=== PATIENT | female | born 1995 | race Caucasian/White ===

== ENCOUNTER 2017-03-03 18:16 | Emergency (ER) | payer SELFPAY ==
[2017-03-03 18:16] VITALS: BMI 19.7
[2017-03-03 18:42] VITALS: TEMP 98.1
[2017-03-03] MEDS ORDERED: Sodium Chloride 0.9% 1,000 ML IV STA (19:18)
--- NOTE | 2017-03-03 19:27 | ED PDOC ---
Arrival/HPI <Kuldeep Brown - Last Filed: 03/03/17 23:46> - General Historian: Patient <Angel Kiran - Last Filed: 03/04/17 00:15> - General Chief Complaint: Abdominal Pain Time Seen by Provider: 03/03/17 18:51 - History of Present Illness Narrative History of Present Illness (Text): 03/03/17 19:26 21 y/o female, no pmh, nkda, c/o lt. abdominal swelling and lump x 1 week. Pt. stated that she strains alot, been having pain and feels there is nodule, no nausea or vomiting, no diarrhea, no constipation, last bowel movement was today , no urinary symptoms, no other medical or psychological complaints. (Angel Kiran) Past Medical History - Provider Review Nursing Documentation Reviewed: Yes - Past History Past History: No Previous - Infectious Disease Hx of Infectious Diseases: None - Cardiac Hx Cardiac Disorders: No - Pulmonary Hx Asthma: Yes - Neurological Hx Neurological Disorder: No - HEENT Hx HEENT Disorder: No - Renal Hx Renal Disorder: No - Endocrine/Metabolic Hx Endocrine Disorders: No - Hematological/Oncological Hx Blood Disorders: No - Integumentary Hx Dermatological Disorder: No - Musculoskeletal/Rheumatological Hx Musculoskeletal Disorders: No - Gastrointestinal Hx Gastrointestinal Disorders: No - Genitourinary/Gynecological Hx Genitourinary Disorders: No - Psychiatric Hx Psychophysiologic Disorder: No Hx Substance Use: No - Anesthesia Hx Anesthesia: No <Angel Kiran - Last Filed: 03/04/17 00:15> Family/Social History - Physician Review Nursing Documentation Reviewed: Yes Family/Social History: Unknown Family HX Smoking Status: Never Smoked Hx Alcohol Use: Yes Frequency of alcohol use: Socially Hx Substance Use: No <Angel Kiran - Last Filed: 03/04/17 00:15> Allergies/Home Meds <Kuldeep Brown - Last Filed: 03/03/17 23:46> <Angel Kiran - Last Filed: 03/04/17 00:15> Allergies/Adverse Reactions: Allergies Daily Allergy (Uncoded 03/03/17 18:43) ANAPHYLAXIS Review of Systems - Review of Systems Constitutional: absent: Fatigue, Fevers Eyes: absent: Vision Changes ENT: absent: Hearing Changes Respiratory: absent: SOB, Cough Cardiovascular: absent: Chest Pain Gastrointestinal: Abdominal Pain. absent: Nausea, Vomiting Neurological: absent: Headache, Dizziness, Focal Weakness, Gait Changes, Speech Changes, Facial Droop, Disequilibrium, Seizure <Angel Kiran - Last Filed: 03/04/17 00:15> Physical Exam Vital Signs Reviewed: Yes Temperature: Afebrile Blood Pressure: Normal Pulse: Regular Respiratory Rate: Normal Appearance: Positive for: Well-Appearing, Non-Toxic, Comfortable Pain Distress: Mild Mental Status: Positive for: Alert and Oriented X 3 - Systems Exam Head: Present: Atraumatic, Normocephalic Pupils: Present: PERRL Extroacular Muscles: Present: EOMI Conjunctiva: Present: Normal Mouth: Present: Moist Mucous Membranes Neck: Present: Normal Range of Motion Respiratory/Chest: Present: Clear to Auscultation, Good Air Exchange. No: Respiratory Distress, Accessory Muscle Use Cardiovascular: Present: Regular Rate and Rhythm, Normal S1, S2. No: Murmurs Abdomen: Present: Normal Bowel Sounds, Other (palpable bulging approx. 3cm diameter appear to be lipoma but resolved when supine.). No: Tenderness, Distention, Peritoneal Signs, Rebound, Guarding Back: Present: Normal Inspection Upper Extremity: Present: Normal Inspection. No: Cyanosis, Edema Lower Extremity: Present: Normal Inspection. No: Edema Neurological: Present: GCS=15, CN II-XII Intact, Speech Normal Skin: Present: Warm, Dry, Normal Color. No: Rashes Psychiatric: Present: Alert, Oriented x 3, Normal Insight, Normal Concentration <Angel Kiran - Last Filed: 03/04/17 00:15> Vital Signs Temp Pulse Resp BP Pulse Ox 03/03/17 22:30 72 17 118/62 98 03/03/17 18:37 98.1 F 65 18 103/69 98 Medical Decision Making <Kuldeep Brown - Last Filed: 03/03/17 23:46> - Lab Interpretations I have reviewed the lab results: Yes Interpretation: Abnormal lab values (K+ 3.4) <Angel Kiran - Last Filed: 03/04/17 00:15> ED Course and Treatment: 03/03/17 19:24 -labs -CT abdomen and pelvis -IVF/toradol -Observe and reassess 03/04/17 00:11 -Labs are non-significant except K+ 3.4 which I ordered potassium chloride 20meq po. -UA show no UTI. -CT abdomen show possible cystitis vs. lt. ovarian cyst. -I discussed all labs and radiology results with the patient, advised outpatient MRI of the abdomen with the pmd. -Pt. has no pain or discomfort now. -Discharge home with ibuprofen, eat more banana to increase your potassium, avoid strenuous exercise or activity, avoid heavy lifting, follow up with your own pmd for outpatient MRI of the abdomen/pelvic for follow up, return to the ER for any new or worsening signs or symptoms. (Angel Kiran) - Lab Interpretations Lab Results: 03/03/17 20:20 03/03/17 20:20 Lab Results 03/03/17 22:10: Urine Color Yellow, Urine Appearance Clear, Urine pH 7.5, Ur Specific [place] 1.015, Urine Protein Negative, Urine Glucose (UA) Negative, Urine Ketones Negative, Urine Blood Negative, Urine Nitrate Negative, Urine Bilirubin Negative, Urine Urobilinogen 0.2, Ur Leukocyte Esterase Negative 03/03/17 20:20: WBC 5.0, RBC 4.30, Hgb 12.9, Hct 38.1, MCV 88.6, MCH 30.0, MCHC 33.9, RDW 13.0, Plt Count 176, MPV 10.6, Gran % 49.6 L, Lymph % (Auto) 36.2 H, [place] % (Auto) 6.1 H, Eos % (Auto) 7.9 H, Baso % (Auto) 0.2, Gran # 2.46, Lymph # 1.8, [place] # 0.3, Eos # 0.4, Baso # 0.01, Sodium 140, Potassium 3.4 L, Chloride 102, Carbon Dioxide 27, Anion Gap 14, BUN 10, Creatinine 0.5, Est GFR ( Amer) > 60, Est GFR (Non-Af Amer) > 60, Random Glucose 84, Calcium 9.4, Total Bilirubin 0.6, AST 30, ALT 30, Alkaline Phosphatase 57, Total Protein 8.0 , Albumin 4.3, Globulin 3.7, Albumin/Globulin Ratio 1.2, Lipase 55 - RAD Interpretation Radiology Orders: 03/03/17 19:18 ABD & PELVIS IV CONTRAST ONLY [CT] Stat - Medication Orders Current Medication Orders: Discontinued Medications Sodium Chloride (Sodium Chloride 0.9%) 1,000 mls @ 999 mls/hr IV .Q1H1M STA Stop: 03/03/17 20:18 Last Admin: 03/03/17 22:22 Dose: 999 MLS/HR eMAR Start Stop Document 03/03/17 22:22 RD (Rec: 03/03/17 22:22 RD [id number]) Intravenous Solution Start Date 03/03/17 Start Time 22:22 End Date 03/03/17 End time 23:22 Total Infusion Time 60 Iohexol (Omnipaque 350 100 Ml) Confirm Administered Dose 350 mg .ROUTE .STK-MED ONE Stop: 03/03/17 21:44 Ketorolac Tromethamine (Toradol) 30 mg IVP STAT STA Stop: 03/03/17 19:22 Last Admin: 03/03/17 22:22 Dose: 30 MG IVP Administration Document 03/03/17 22:22 RD (Rec: 03/03/17 22:22 RD [id number]) Charges for Administration # of IVP Administrations 1 - PA / ROUTE RETURNER / Resident Statement AWA has reviewed & agrees with the documentation as recorded. <Kuldeep Brown - Last Filed: 03/03/17 23:46> - PA / ROUTE RETURNER / Resident Statement AWA has reviewed & agrees with the documentation as recorded. <Angel Kiran - Last Filed: 03/04/17 00:15> Disposition/Present on Arrival <Kuldeep Brown - Last Filed: 03/03/17 23:46> - Present on Arrival Any Indicators Present on Arrival: No History of DVT/PE: No History of Uncontrolled Diabetes: No Urinary Catheter: No History of Decub. Ulcer: No History Surgical Site Infection Following: None - Disposition Have Diagnosis and Disposition been Completed?: Yes Disposition Time: 00:14 Patient Plan: Discharge <Angel Kiran - Last Filed: 03/04/17 00:15> - Disposition Diagnosis: Ovarian cyst, Abdominal wall lump Disposition: HOME/ ROUTINE Condition: IMPROVED Discharge Instructions (ExitCare): [place] (ED) Print Language: MALTESE Additional Instructions: Discharge home with ibuprofen, eat more banana to increase your potassium, avoid strenuous exercise or activity, avoid heavy lifting, follow up with your own pmd for outpatient MRI of the abdomen/pelvic for follow up, return to the ER for any new or worsening signs or symptoms. Prescriptions: Ibuprofen [Motrin Tab] 800 mg PO TID PRN #21 tab PRN Reason: Other Referrals: Geovanni Ramires, [Primary Care Provider] - Follow up with primary [facility] at [facility] [Outside] - Follow up with primary Forms: SCHOOL NOTE
[2017-03-03 20:29] LABS: ADD MANUAL DIFF? NO
[2017-03-03 20:32] LABS: BASO # 0.01 K/mm3 (0.0-2.0); BASO % 0.2 % (0.0-3.0); EOS # 0.4 (0.0-0.7); EOS % 7.9 % (1.5-5.0); GRAN # 2.46 (1.4-6.5); GRAN % 49.6 % (50.0-68.0); HEMATOCRIT 38.1 % (36.0-48.0); LYMPH # 1.8 (1.2-3.4); LYMPH % 36.2 % (22.0-35.0); MEAN CELL VOLUME 88.6 fL (80.0-105.0); MEAN CORPUSCULAR HGB CONC 33.9 g/dl (31.0-37.0); MEAN PLATELET VOLUME 10.6 fl (7.0-11.0); MONO # 0.3 (0.1-0.6); MONO % 6.1 % (1.0-6.0); PLATELET COUNT 176 10^3/uL (120.0-450.0)
[2017-03-03 20:44] LABS: ALB/GLOB RATIO 1.2 (1.1-1.8); ALKALINE PHOSPHATASE 57 U/L (38-133); ALT/SGPT 30 U/L (7-56); AST/SGOT 30 U/L (15-39); BILIRUBIN,TOTAL 0.6 mg/dL (0.2-1.3); BLOOD UREA NITROGEN 10 mg/dL (7-21); CALCIUM 9.4 mg/dL (8.4-10.5); CARBON DIOXIDE 27 mmol/L (21-33); CHLORIDE 102 mmol/L (98-107); GFR AFRICAN-AMERICAN > 60; GLUCOSE,RANDOM 84 mg/dL (70-110); LIPASE 55 U/L (23-300); POTASSIUM 3.4 mmol/L (3.6-5.0); SODIUM 140 mmol/L (132-148)
[2017-03-03] MEDS ORDERED: Iohexol 350 MG/100 ML VIAL ONE (21:43)
[2017-03-03 22:28] LABS: PH,URINE 7.5 (4.7-8.0); URINE BILIRUBIN NEGATIVE (NEGATIVE); URINE BLOOD NEGATIVE (NEGATIVE); URINE GLUCOSE (UA) NEGATIVE (NEGATIVE); URINE KETONE NEGATIVE (NEGATIVE); URINE LEUKOCYTE ESTERASE NEGATIVE Leu/uL (NEGATIVE); URINE PROTEIN NEGATIVE mg/dL (<30 mg/dL); URINE UROBILINOGEN 0.2 E.U./dL (<1 E.U./dL)
[2017-03-03 22:29] LABS: URINE APPEARANCE CLEAR (CLEAR); URINE COLOR YELLOW (YELLOW)
--- NOTE | 2017-03-04 00:05 | CT ---
EXAM: CT Abdomen and Pelvis With Intravenous Contrast CLINICAL HISTORY: 21 years old, female; Pain; Abdominal pain; Acute; Additional info: Lt. Sided abdominal mass? TECHNIQUE: Axial computed tomography images of the abdomen and pelvis with intravenous contrast. This CT exam was performed using one or more of the following dose reduction techniques: automated exposure control, adjustment of the mA and/or kV according to patient size, and/or use of iterative reconstruction technique. Coronal and sagittal reformatted images were created and reviewed. CONTRAST: 100 mL of omni 350 administered intravenously. COMPARISON: No relevant prior studies available. FINDINGS: Limitations: Motion artifact - mild. Lower thorax: No acute findings. ABDOMEN: Liver: Unremarkable. No mass. Gallbladder and bile ducts: No calcified stones. No ductal dilation. Pancreas: No ductal dilation. No mass. Spleen: No splenomegaly. Adrenals: No mass. Kidneys and ureters: Too small to characterize lesion within LEFT kidney. No hydronephrosis. Stomach and bowel: No definite mural thickening. No obstruction. Appendix: Normal caliber. No inflammation. PELVIS: Bladder: Borderline bladder wall thickening, 4-5 mm. Incomplete distention, limiting evaluation. Reproductive: 1.8 x 1.6 x 1.8 cm hypodense lesion within LEFT ovary. ABDOMEN and PELVIS: Intraperitoneal space: Trace free fluid within pelvis. No free air. Bones/joints: No acute fracture. Soft tissues: Unremarkable. Vasculature: Unremarkable. No abdominal aortic aneurysm. Lymph nodes: No pathologically enlarged lymph nodes. IMPRESSION: 1. Probable LEFT ovarian cyst. Consider ultrasound. 2. Mild cystitis vs underdistention. Correlate with urinalysis. 3. Incidental/non-acute findings are described above.
[2017-03-04] MEDS ORDERED: Potassium Chloride 20 mEq ER Tab PO STA (00:11)
[2017-03-04 00:54] VITALS: BP 115/61; PULSE 68; RESP 16; O2SAT 100
== END 2017-03-04 00:31 | disposition home or self-care (01) ==
LOC: ED 18:16
DX: R19.00 Intra-abdominal and pelvic swelling, mass and lump, unspecified site (principal); N83.202 Unspecified ovarian cyst, left side
CPT/HCPCS: 74177; 80053; 81003; 83690; 85025; 96361; 96374; 99283; J1885; J7040; Q9967

== ENCOUNTER 2017-08-17 14:09 | Emergency (ER) | payer OTHER ==
[2017-08-17 14:09] VITALS: BMI 19.7
[2017-08-17 14:19] VITALS: RESP 16; TEMP 98
[2017-08-17 15:14] LABS: URINE BILIRUBIN SMALL (NEGATIVE); URINE BLOOD SMALL (NEGATIVE); URINE GLUCOSE (UA) NEGATIVE (NEGATIVE); URINE KETONE 15 mg/dL (NEGATIVE); URINE LEUKOCYTE ESTERASE NEGATIVE Leu/uL (NEGATIVE); URINE PROTEIN TRACE mg/dL (<30 mg/dL)
[2017-08-17 15:15] LABS: URINE APPEARANCE SL CLOUDY (CLEAR); URINE COLOR YELLOW (YELLOW)
[2017-08-17 15:19] LABS: URINE BACTERIA FEW (NEG); URINE RBC 0 - 2 /hpf (0-2); URINE WBC 0 - 2 /hpf (0-6)
--- NOTE | 2017-08-17 15:29 | ED PDOC ---
Arrival/HPI - General Chief Complaint: Hip Pain Time Seen by Provider: 08/17/17 14:28 Historian: Patient - History of Present Illness Narrative History of Present Illness (Text): 08/17/17 21 yo female come in for evaluation of Left sided abdominal swelling, intermittent for past few months associated with intermittent pain. Pt sts, was seen here few months ago " and was told have hernia". Pt sts, pain and swelling intermittent, noted more with menstrual period and standing position. Otherwise , pt denies fever, chills, recent illness, denies N/V/D or change in appetite, food intolerance, denies back pain, UTI sx, vaginal irritation or discharges. Denies previous hx of abd. surgery. Ambulate to Ed for evaluation, not in any apparent distress. FYI: Records from previous visits to ED review, last one was on 03/03/17 when blood work, CT abd/pelvis performed and noted nos left ovarian cyst, no other acute abnormalities noted. Past Medical History - Provider Review Nursing Documentation Reviewed: Yes - Travel History Have you recently traveled outside [place] w/in the past 3 mons?: No - Past History Past History: No Previous - Infectious Disease Hx of Infectious Diseases: None - Cardiac Hx Cardiac Disorders: No - Pulmonary Hx Respiratory Disorders: No - Neurological Hx Neurological Disorder: No - HEENT Hx HEENT Disorder: No - Renal Hx Renal Disorder: No - Endocrine/Metabolic Hx Endocrine Disorders: No - Hematological/Oncological Hx Blood Disorders: No - Integumentary Hx Dermatological Disorder: No - Musculoskeletal/Rheumatological Hx Musculoskeletal Disorders: No - Gastrointestinal Hx Gastrointestinal Disorders: No - Genitourinary/Gynecological Hx Genitourinary Disorders: No - Psychiatric Hx Psychophysiologic Disorder: No Hx Substance Use: No - Anesthesia Hx Anesthesia: No Family/Social History - Physician Review Nursing Documentation Reviewed: Yes Family/Social History: No Known Family HX Smoking Status: Current Some Days Smoker Hx Alcohol Use: Yes Frequency of alcohol use: Socially Hx Substance Use: No Allergies/Home Meds Allergies/Adverse Reactions: Allergies dairy Allergy (Uncoded 08/17/17 14:20) ANAPHYLAXIS Home Medications: Home Meds Medication Instructions Recorded Confirmed No Known Home Med 08/17/17 08/17/17 Review of Systems - Review of Systems Constitutional: Normal Eyes: Normal ENT: Normal Respiratory: Normal Cardiovascular: Normal Gastrointestinal: Abdominal Pain. absent: Stool Changes, Constipation, Diarrhea , Nausea, Vomiting, Appetite Changes, Hematochezia, Hematemesis, Food Intolerance Genitourinary Female: Normal Musculoskeletal: Normal Skin: Normal Neurological: Normal Endocrine: Normal Hemo/Lymphatic: Normal Psychiatric: Normal Physical Exam Vital Signs Temp Pulse Resp BP Pulse Ox 08/17/17 14:13 98 F 77 16 100/64 97 Temperature: Afebrile Blood Pressure: Normal Pulse: Regular Respiratory Rate: Normal Appearance: Positive for: Well-Appearing, Non-Toxic, Comfortable Pain Distress: None Mental Status: Positive for: Alert and Oriented X 3 - Systems Exam Head: Present: Normocephalic Conjunctiva: Present: Normal Mouth: Present: Moist Mucous Membranes Neck: Present: Trachea Midline. No: MIDLINE TENDERNESS, JVD, Bruit Respiratory/Chest: Present: Clear to Auscultation, Good Air Exchange. No: Respiratory Distress, Accessory Muscle Use Cardiovascular: Present: Regular Rate and Rhythm, Normal S1, S2. No: Murmurs Abdomen: Present: Normal Bowel Sounds. No: Tenderness, Distention, Peritoneal Signs, Rebound, Guarding, Hernias Back: No: CVA Tenderness Upper Extremity: Present: Normal ROM. No: Deformity Lower Extremity: No: Edema, CALF TENDERNESS, Tenderness, Swelling, Deformity Neurological: Present: GCS=15, Speech Normal Skin: Present: Warm, Dry, Normal Color. No: Rashes Psychiatric: Present: Alert, Oriented x 3, Normal Insight, Normal Concentration Medical Decision Making ED Course and Treatment: 08/17/17 15:31 On re-eval, pt is afebrile, hemodynamicaly stable. non-toxic. Ambulatory in ED with stable gait. PulseOx 97% RA ENT: No acute findings Neck: Supple, (-) JVD, (-) carotid bruits Lungs: CTA B/L, BS equal B/L. Abd: benign, (-) guarding, (-) rebound, (-) localized tenderness or palpable hernia. back: (-) CVA tenderness. Preg (-) UA review. CT abd/pelvis review and compare to previous study, appears normal study. Pt has clinical findings c/w abdominal mass, nos. Pt advised and ref. to F/u with PMD, GI in 2-3 days for re-eval. return if any new changes. - Lab Interpretations Lab Results: Lab Results 08/17/17 14:55: Urine Color Yellow, Urine Appearance Sl cloudy, Urine pH 6.0, Ur Specific [place] 1.025, Urine Protein Trace H, Urine Glucose (UA) Negative, Urine Ketones 15 H, Urine Blood Small H, Urine Nitrate Negative, Urine Bilirubin Small H, Urine Urobilinogen 1.0 H, Ur Leukocyte Esterase Negative, Urine RBC 0 - 2, Urine WBC 0 - 2, Ur Epithelial Cells 6 - 8, Urine Bacteria Few - RAD Interpretation Radiology Orders: 08/17/17 14:42 ABD & PELVIS W/O PO OR IV CONT [CT] Stat Study Comment : Sex / Age : F / 21Y Creator : Kuldeep Rosas MD Dictator : Kuldeep Rosas MD Machine Operator : Refrigerator Assembler : Kuldeep Rosas MD Approver2 : Report Date : 08/17/2017 16:06:12 My Comment : PROCEDURE: CT Abdomen and Pelvis without intravenous contrast HISTORY: LLQ pain, swelling COMPARISON: None. TECHNIQUE: Technique. Contrast Dose: Radiation dose: Total exam DLP = 220 mGy-cm. This CT exam was performed using one or more of the following dose reduction techniques: Automated exposure control, adjustment of the mA and/or kV according to patient size, and/or use of iterative reconstruction technique. FINDINGS: LOWER THORAX: Unremarkable. LIVER: Unremarkable. No gross lesion or ductal dilatation. GALLBLADDER AND BILE DUCTS: Unremarkable. PANCREAS: Unremarkable. No gross lesion or ductal dilatation. SPLEEN: Unremarkable. ADRENALS: Unremarkable. No mass. KIDNEYS AND URETERS: Unremarkable. No hydronephrosis. No solid mass. VASCULATURE: Unremarkable. No aortic aneurysm. BOWEL: Unremarkable. No obstruction. No gross mural thickening. APPENDIX: Unremarkable. Normal appendix. PERITONEUM: Unremarkable. No free fluid. No free air. LYMPH NODES: Unremarkable. No enlarged lymph nodes. BLADDER: Unremarkable. REPRODUCTIVE: Unremarkable. BONES: No acute fracture. OTHER FINDINGS: None. IMPRESSION: Unremarkable non contrast enhanced CT of the abdomen and pelvis. Disposition/Present on Arrival - Present on Arrival Any Indicators Present on Arrival: No History of DVT/PE: No History of Uncontrolled Diabetes: No Urinary Catheter: No History of Decub. Ulcer: No History Surgical Site Infection Following: None - Disposition Have Diagnosis and Disposition been Completed?: Yes Diagnosis: Abdominal mass, left lower quadrant Disposition: HOME/ ROUTINE Disposition Time: 16:10 Patient Plan: Discharge Patient Problems: Current Active Problems Problem Status Onset Abdominal mass, left lower quadrant Acute Condition: STABLE Discharge Instructions (ExitCare): Abdominal Pain (ED) Additional Instructions: FOLLOW UP WITH PMD, GI IN 2-3 DAYS FOR RE-EVALUATION AND FURTHER TREATMENT NEED RETURN IF ANY NEW CHANGES. Referrals: Sheridan Carrero MD [Primary Care Provider] - Follow up with primary Forms: [employer] (Lebanese)
--- NOTE | 2017-08-17 16:07 | CT ---
PROCEDURE: CT Abdomen and Pelvis without intravenous contrast HISTORY: LLQ pain, swelling COMPARISON: None. TECHNIQUE: Technique. Contrast Dose: Radiation dose: Total exam DLP = 220 mGy-cm. This CT exam was performed using one or more of the following dose reduction techniques: Automated exposure control, adjustment of the mA and/or kV according to patient size, and/or use of iterative reconstruction technique. FINDINGS: LOWER THORAX: Unremarkable. LIVER: Unremarkable. No gross lesion or ductal dilatation. GALLBLADDER AND BILE DUCTS: Unremarkable. PANCREAS: Unremarkable. No gross lesion or ductal dilatation. SPLEEN: Unremarkable. ADRENALS: Unremarkable. No mass. KIDNEYS AND URETERS: Unremarkable. No hydronephrosis. No solid mass. VASCULATURE: Unremarkable. No aortic aneurysm. BOWEL: Unremarkable. No obstruction. No gross mural thickening. APPENDIX: Unremarkable. Normal appendix. PERITONEUM: Unremarkable. No free fluid. No free air. LYMPH NODES: Unremarkable. No enlarged lymph nodes. BLADDER: Unremarkable. REPRODUCTIVE: Unremarkable. BONES: No acute fracture. OTHER FINDINGS: None. IMPRESSION: Unremarkable non contrast enhanced CT of the abdomen and pelvis.
[2017-08-17 16:44] VITALS: BP 107/66; PULSE 69; O2SAT 99
== END 2017-08-17 16:44 | disposition home or self-care (01) ==
LOC: ED 14:09
DX: R19.04 Left lower quadrant abdominal swelling, mass and lump (principal)

== ENCOUNTER 2018-05-04 13:56 | Emergency (ER) | payer OTHER ==
[2018-05-04 13:56] VITALS: BMI 19.7
[2018-05-04 15:03] VITALS: PULSE 79; TEMP 98.5
--- NOTE | 2018-05-04 15:42 | ED PDOC ---
Arrival/HPI - General Historian: Patient - Critical Care Critical Care Minutes: 30 minutes <Edy Martinez - Last Filed: 05/04/18 15:33> <Sherman Bernard - Last Filed: 05/04/18 19:53> - General Chief Complaint: Breast Problem Time Seen by Provider: 05/04/18 14:32 - History of Present Illness Narrative History of Present Illness (Text): 05/04/18 15:33 This is a 22 yo Irish F with PMH of Ovarian Cyst who presents with complaint of R breast pain/mass since yesterday and L breast pain this AM. As per patient , she experienced right lateral breast pain yesterday evening, and felt a mass along upper lateral quadrant, not extending into the axilla. She reports it as tender to palpation, kettle tender today, and also reports intermittent pain like a shock, not palpation dependent, never lasting for more than a few seconds. Overnight, she developed medial R breast pain, and when she palpated the site, she felt another mass there. She also reports additional shocking sensation at the left nipple since this AM, but denies any masses that she could feel at that site. She became worried due to her mother's history of breast cysts, so she presented for evaluation. She denies any personal hx of prior breast masses, any breast discharge, any fluctuance/erythema/crepitus at sites of masses or at L nipple. Denies any chest pain, shortness of breath, nausea, emesis, breast discharge, dysuria, hematuria, constipation, diarrhea, fevers, or chills. Reports not sexually active, no hx of STDs, no chance of being . Reports irregular periods; usually FDLMP is at end of month, but had last April 14, and missed the one prior to that. Denies breakthrough bleeding, vaginal discharge. All other ROS in 12-system review negative. Admits to not following any PMD or OB-Talent Acquisition Operations Manager. PMH: ovarian cyst PSH: denies Fam Hx: breast cysts (mother, emphatic that she didn't have cancer) Soc Hx: intermittent and inconsistent cigarette use (< 1/4 ppd for 1-2 years), admits social EtOH but denies any binge episodes in last 4 weeks, denies illicits/IVDA PMD: none OB-Talent Acquisition Operations Manager: none (Juan,Edy) Past Medical History - Past History Past History: No Previous - Infectious Disease Hx of Infectious Diseases: None - Cardiac Hx Cardiac Disorders: No - Pulmonary Hx Respiratory Disorders: No - Neurological Hx Neurological Disorder: No - HEENT Hx HEENT Disorder: No - Renal Hx Renal Disorder: No - Endocrine/Metabolic Hx Endocrine Disorders: No - Hematological/Oncological Hx Blood Disorders: No - Integumentary Hx Dermatological Disorder: No - Musculoskeletal/Rheumatological Hx Musculoskeletal Disorders: No - Gastrointestinal Hx Gastrointestinal Disorders: No - Genitourinary/Gynecological Hx Genitourinary Disorders: No - Psychiatric Hx Psychophysiologic Disorder: No Hx Substance Use: No - Anesthesia Hx Anesthesia: No <Edy Martinez - Last Filed: 05/04/18 15:33> - Travel History Have you recently traveled outside [place] w/in the past 3 mons?: No - Reproductive Menopause: No Currently : Unknown <Sherman Bernard - Last Filed: 05/04/18 19:53> Family/Social History Family/Social History: Other (Breast Cysts in Mother (NOT Cancer)) Smoking Status: Current Some Days Smoker Hx Alcohol Use: Yes Frequency of alcohol use: Socially Hx Substance Use: No <Edy Martinez - Last Filed: 05/04/18 15:33> Hx Substance Use Treatment: No <Sherman Bernard - Last Filed: 05/04/18 19:53> Allergies/Home Meds <Edy Martinez - Last Filed: 05/04/18 15:33> <Sherman Bernard - Last Filed: 05/04/18 19:53> Allergies/Adverse Reactions: Allergies dairy Allergy (Uncoded 05/04/18 14:57) ANAPHYLAXIS Home Medications: Home Meds Medication Instructions Recorded Confirmed No Known Home Med 08/17/17 05/04/18 Review of Systems - Physician Review All systems were reviewed & negative as marked: Yes (as per HPI) <Edy Martinez - Last Filed: 05/04/18 15:33> Physical Exam Vital Signs Reviewed: Yes Temperature: Afebrile Blood Pressure: Normal Pulse: Regular Respiratory Rate: Normal Appearance: Positive for: Well-Appearing, Non-Toxic, Other (Anxious but ) Pain Distress: None Mental Status: Positive for: Alert and Oriented X 3 - Systems Exam Head: Present: Atraumatic, Normocephalic Pupils: Present: PERRL. No: Sluggish, Non-Reactive, Pinpoint Extroacular Muscles: Present: EOMI. No: Gaze Palsy, Entrapment Conjunctiva: Present: Normal. No: Injected, Icteric Mouth: Present: Moist Mucous Membranes, Normal Lips, Normal Tounge, Normal Teeth. No: Dry, Drooling Pharnyx: Present: Normal. No: ERYTHEMA, EXUDATE Nose (External): Present: Atraumatic. No: Abrasion, Laceration Nose (Internal): Present: Normal Inspection, No Active Bleeding. No: Epistaxis Neck: Present: Normal Range of Motion, Trachea Midline. No: JVD, Lymphadenopathy Respiratory/Chest: Present: Clear to Auscultation, Good Air Exchange. No: Respiratory Distress, Accessory Muscle Use, Wheezes, Rales, Rhonchi Cardiovascular: Present: Regular Rate and Rhythm, Normal S1, S2. No: Murmurs, Irregular Rhythm, Tachycardic, Bradycardic Abdomen: Present: Normal Bowel Sounds. No: Tenderness, Distention, Peritoneal Signs, Feeding Tubes Breast/Axillary: Present: Other (at site of patient reported masses, bands of fibrous tissue that are tender to palpation, but no fluctuance/erythema/ palpable masses appreciated, no nipple cracking or bleeding bilaterally, no expressed discharge from either breast, no discoloration or rectractions, freely moving breast in all planes) Upper Extremity: Present: Normal Inspection, Normal ROM, NORMAL PULSES. No: Cyanosis, Edema, Tenderness, Swelling, Erythema, Deformity Lower Extremity: Present: Normal Inspection, NORMAL PULSES, Normal ROM. No: Edema, CALF TENDERNESS, Cyanosis, Tenderness, Swelling, Erythema, Deformity Neurological: Present: GCS=15, CN II-XII Intact, Speech Normal, Motor Func Grossly Intact, Normal Sensory Function Skin: Present: Warm, Dry, Normal Color. No: Rashes Psychiatric: Present: Alert, Oriented x 3, Normal Insight, Normal Concentration , Normal Affect, Normal Mood, Anxious (mildly anxious but easily calmed) <Edy Martinez - Last Filed: 05/04/18 15:33> <Sherman Bernard - Last Filed: 05/04/18 19:53> Vital Signs Temp Pulse Resp BP Pulse Ox 05/04/18 14:57 98.5 F 79 16 109/77 98 Medical Decision Making <Edy Martinez - Last Filed: 05/04/18 15:33> Re-evaluation Time: 15:00 Reassessment Condition: Unchanged <Sherman Bernard - Last Filed: 05/04/18 19:53> ED Course and Treatment: 05/04/18 15:47 Ddx: fibrous tissue vs mastitis vs small/difficult to palpate cysts Exam only notable for minimally tender bands of tenderness at sites of reported masses, no appreciate masses or findings consistent with abscesses. Instructed patient that there in no acute interventions to be done at this time. Patient instructed to establish with at least a PMD and ideally an OB-Talent Acquisition Operations Manager, and to follow up for additional workup (mammogram, breast US, etc). Patient expressed understanding and agreement. Patient to be discharged. Patient seen, reviewed with attending, Dr. Bernard. (Edy Martinez) I performed the hx and physical exam of the patient and discussed their mgt with the RESIDENT. I reviewed the RESIDENT's NOTE and agree with the assessment and plan of care. pt is comfortable appearing, NAD pt is made aware of her medical results pt will f/u as directed pt will be discharged home pt is encouraged continued self breast exam and to f/u with women's health clinic (Sherman Bernard) Disposition/Present on Arrival - Present on Arrival Any Indicators Present on Arrival: No History of DVT/PE: No History of Uncontrolled Diabetes: No Urinary Catheter: No History of Decub. Ulcer: No History Surgical Site Infection Following: None - Disposition Have Diagnosis and Disposition been Completed?: Yes Disposition Time: 15:53 Patient Plan: Discharge <Edy Martinez - Last Filed: 05/04/18 15:33> <Sherman Bernard - Last Filed: 05/04/18 19:53> - Disposition Diagnosis: Mastalgia in female Disposition: HOME/ ROUTINE Patient Problems: Current Active Problems Problem Status Onset Mastalgia in female Acute Condition: GOOD Discharge Instructions (ExitCare): Mastalgia (DC), Chest Pain (ED) Print Language: ALBANIAN Additional Instructions: You were seen in the Emergency department for your bilateral breast pain. Based on examination and symptoms, you do not have any acute concerns, such as breast abscesses or cellulitis. You will require additional follow up with a PMD at minimum and an OB-Talent Acquisition Operations Manager ideally. Referrals for the [facility] and for the [facility] at [facility] have been provided. Please follow up with both sites within 1 week of discharge. Please return to a hospital if you experience worsening or new concerning symptoms. Referrals: [facility] [Outside] - Follow up with primary [facility] [Outside] - Follow up with primary Forms: [employer] (Amharic)
[2018-05-04 22:54] VITALS: BP 114/60; RESP 18; O2SAT 100
== END 2018-05-04 16:01 | disposition home or self-care (01) ==
LOC: ED 13:56
DX: N64.4 Mastodynia (principal)

== ENCOUNTER 2019-04-03 19:31 | Emergency (ER) | payer MEDICAID, OTHER ==
[2019-04-03 19:31] VITALS: BMI 19.7
[2019-04-03 20:07] VITALS: TEMP 97.8
[2019-04-03] MEDS ORDERED: Sodium Chloride 0.9% 1,000 ML IV STA (20:10)
--- NOTE | 2019-04-03 20:29 | ED PDOC ---
Arrival/HPI - General Chief Complaint: Weakness/Neurological Deficit Time Seen by Provider: 04/03/19 19:35 Historian: Patient - History of Present Illness Narrative History of Present Illness (Text): 04/03/19 20:27 A 23 year old female presents to the emergency department complaining of nausea, vomiting, diarrhea, and dizziness starting this evening. Patient reports symptoms began after eating pasta meal earlier today. Patient denies any fever, chills, headache, abdominal pain, or any other complaints at this time. PMD: Dr. Sheridan Carrero Past Medical History - Provider Review Nursing Documentation Reviewed: Yes - Past History Past History: No Previous - Infectious Disease Hx of Infectious Diseases: None - Cardiac Hx Cardiac Disorders: No - Pulmonary Hx Respiratory Disorders: No - Neurological Hx Neurological Disorder: No - HEENT Hx HEENT Disorder: No - Renal Hx Renal Disorder: No - Endocrine/Metabolic Hx Endocrine Disorders: No - Hematological/Oncological Hx Blood Disorders: No - Integumentary Hx Dermatological Disorder: No - Musculoskeletal/Rheumatological Hx Musculoskeletal Disorders: No - Gastrointestinal Hx Gastrointestinal Disorders: No - Genitourinary/Gynecological Hx Genitourinary Disorders: No - Psychiatric Hx Psychophysiologic Disorder: No Hx Substance Use: No - Anesthesia Hx Anesthesia: No Family/Social History - Physician Review Nursing Documentation Reviewed: Yes Family/Social History: No Known Family HX Smoking Status: Current Some Days Smoker Hx Alcohol Use: Yes Frequency of alcohol use: Socially Hx Substance Use: No Hx Substance Use Treatment: No Allergies/Home Meds Allergies/Adverse Reactions: Allergies dairy Allergy (Uncoded 05/04/18 14:57) ANAPHYLAXIS Review of Systems - Physician Review All systems were reviewed & negative as marked: Yes - Review of Systems Constitutional: absent: Fevers, Night Sweats Gastrointestinal: Diarrhea, Nausea, Vomiting. absent: Abdominal Pain Neurological: Dizziness. absent: Headache Physical Exam Vital Signs Reviewed: Yes Vital Signs Temp Pulse Resp BP Pulse Ox 04/03/19 19:45 97.8 F 97 H 17 123/80 98 Temperature: Afebrile Blood Pressure: Normal Pulse: Regular Respiratory Rate: Normal Appearance: Positive for: Well-Appearing, Non-Toxic, Comfortable Pain Distress: None Mental Status: Positive for: Alert and Oriented X 3 - Systems Exam Head: Present: Atraumatic, Normocephalic Pupils: Present: PERRL Extroacular Muscles: Present: EOMI Conjunctiva: Present: Normal Mouth: Present: Moist Mucous Membranes Neck: Present: Normal Range of Motion Respiratory/Chest: Present: Clear to Auscultation, Good Air Exchange. No: Respiratory Distress, Accessory Muscle Use Cardiovascular: Present: Regular Rate and Rhythm, Normal S1, S2. No: Murmurs Abdomen: No: Tenderness, Distention, Peritoneal Signs Back: Present: Normal Inspection Upper Extremity: Present: Normal Inspection. No: Cyanosis, Edema Lower Extremity: Present: Normal Inspection. No: Edema Neurological: Present: GCS=15, CN II-XII Intact, Speech Normal Skin: Present: Warm, Dry, Normal Color. No: Rashes Psychiatric: Present: Alert, Oriented x 3, Normal Insight, Normal Concentration Medical Decision Making ED Course and Treatment: 04/03/19 20:28 Impression: 23 year old female with nausea, vomiting, diarrhea, and dizziness. Physical exam is benign. Plan: -- EKG -- Labs -- Pepcid -- IV Fluids -- Zofran -- Reassess and disposition Progress Notes: EKG: Ordered, reviewed, and independently interpreted the EKG. Rate : 96 BPM Rhythm : NSR Interpretation : No ST-segment elevations or depressions, no T-wave inversions, normal intervals. Comparison : No previous EKG for comparison. 04/03/19 21:33 On re-evaluation, patient states she feels better and is in no acute distress. Patient is stable for discharge. Patient was instructed to follow up with physician or return if symptoms worsen or new concerning symptoms arise. - Lab Interpretations I have reviewed the lab results: Yes - EKG Interpretation Interpreted by ED Physician: Yes Type: 12 lead EKG - Medication Orders Current Medication Orders: Sodium Chloride (Sodium Chloride 0.9%) 1,000 mls @ 999 mls/hr IV .Q1H1M STA Stop: 04/03/19 21:10 Discontinued Medications Famotidine (Pepcid) 20 mg IVP STAT STA Stop: 04/03/19 20:11 Ondansetron HCl (Zofran Inj) 4 mg IVP ONCE ONE Stop: 04/03/19 20:11 - Scribe Statement The provider has reviewed the documentation as recorded by the Hernan Sandy Provider Scribe Attestation: All medical record entries made by the Scribe were at my direction and personally dictated by me. I have reviewed the chart and agree that the record accurately reflects my personal performance of the history, physical exam, medical decision making, and the department course for this patient. I have also personally directed, reviewed, and agree with the discharge instructions and disposition. Disposition/Present on Arrival - Present on Arrival Any Indicators Present on Arrival: No History of DVT/PE: No History of Uncontrolled Diabetes: No Urinary Catheter: No History of Decub. Ulcer: No History Surgical Site Infection Following: None - Disposition Have Diagnosis and Disposition been Completed?: Yes Diagnosis: Gastroenteritis Disposition: HOME/ ROUTINE Disposition Time: 21:30 Patient Plan: Discharge Condition: GOOD Discharge Instructions (ExitCare): Gastroenteritis (ED) Additional Instructions: Drink small amounts of liquids at a time/advance diet slowly as tolerated/take meds as prescribed/follow up with your doctor this week Prescriptions: Ondansetron ODT [Zofran ODT] 4 mg PO Q6 PRN #12 odt PRN Reason: Nausea/Vomiting Forms: [facility] (Croatian), WORK NOTE
[2019-04-03 20:38] LABS: ALB/GLOB RATIO 1.4 (1.1-1.8); ALBUMIN 4.9 g/dL (3.0-4.8); ALT/SGPT 18 U/L (7-56); AST/SGOT 28 U/L (14-36); BLOOD UREA NITROGEN 18 mg/dL (7-21); GFR NON-AFRICAN AMERICAN > 60; LIPASE 113 U/L (23-300)
[2019-04-03 20:48] LABS: HEMOGLOBIN 13.5 g/dL (12.0-16.0); MEAN CORPUSCULAR HEMOGLOBIN 29.5 pg (25.0-35.0); MEAN CORPUSCULAR HGB CONC 33.5 g/dl (31.0-37.0); MEAN PLATELET VOLUME 10.7 fl (7.0-11.0); RBC 4.58 10^6/uL (3.5-6.1)
[2019-04-03 21:54] VITALS: BP 122/76; PULSE 74; RESP 16; O2SAT 97
--- NOTE | 2019-04-04 13:35 | CARD ---
APPROVED REPORT Date of service: 04/03/2019 EKG Measurement Heart [id number] <Conclusion> Normal sinus rhythm Normal ECG
== END 2019-04-03 21:40 | disposition home or self-care (01) ==
LOC: ED 19:31
DX: K52.9 Noninfective gastroenteritis and colitis, unspecified (principal)
CPT/HCPCS: 80053; 83690; 85027; 93005; 96374; 96375; 99285; J2405; J7030